=== PATIENT | male | born 1960 | race Caucasian/White ===

== ENCOUNTER 2017-01-08 18:09 | Inpatient (IN) | payer OTHER ==
[~2017-01-08] VITALS: Ht 182.9 cm; Wt 88.5 kg
[~2017-01-08 18:09] MED LIST: LR 1,000 ML IV.SOLN IV ONE; MIDAZOLAM HCL 5 MG/ML VIAL (VERSED) IV ONE; NS IRRIG SOLN 1000 ML IR ONE; PROPOFOL 200MG/ 20ML VIAL (DIPRIVAN) IV ONE; SEVOFLURANE 15 MIN GAS INH ONE; SUCCINYLCHOLINE CHLORIDE 20 MG/ML(QUELICIN) IVP ONE; fentaNYL CITRATE 250 MCG/5 ML AMP IV ONE; simvastatin
[2017-01-08 18:21] VITALS: BP_SYST 159
[2017-01-08 19:37] LABS: BASOPHILS # (AUTO) 0.1 K/uL (0.0-0.2); BASOPHILS % (AUTO) 0.4 % (0.0-2.0); EOSINOPHILS % (AUTO) 0.3 % (0.0-4.0); HEMATOCRIT 44.5 % (36-54); HEMOGLOBIN 14.9 g/dL (14.0-18.0); LYMPHOCYTES # (AUTO) 1.9 K/uL (1.0-5.5); LYMPHOCYTES % (AUTO) 13.3 % (20.5-51.5); MEAN CORPUSCULAR HEMOGLOBIN 30 pg (27-31); MEAN CORPUSCULAR HGB CONC 33 % (32-36); MEAN CORPUSCULAR VOLUME 91 fL (79.0-98.0); MONOCYTES # (AUTO) 0.8 K/uL (0.0-1.0); MONOCYTES % (AUTO) 5.6 % (1.7-9.3); NEUTROPHILS # (AUTO) 11.3 K/uL (1.8-7.7); NEUTROPHILS % (AUTO) 80.4 % (40.0-70.0); PLATELET COUNT (AUTO) 316 K/uL (130-430); RED CELL DISTRIBUTION WIDTH 11.2 % (9.0-15.0); WHITE BLOOD COUNT (AUTO) 14.1 K/uL (4.8-10.8)
[2017-01-08 19:41] LABS: CREATININE 1.19 mg/dL (0.55-1.30)
[2017-01-08] MEDS ORDERED: ACETAMINOPHEN 325 MG TABLET PO PRN (19:45)
[2017-01-08] MEDS ORDERED: ONDANSETRON HCL 4 MG/2 ML VIAL IVP PRN (19:45)
[2017-01-08] MEDS ORDERED: MORPHINE 4 MG/ML INJ. SYRINGE IVP PRN (19:45)
[2017-01-08] MEDS ORDERED: HYDROcodone/ACETAMIN 5-325 MG TAB (NORCO/ VICODIN) PO PRN (19:45)
[2017-01-08 19:46] LABS: ALBUMIN 4.5 g/dL (3.4-4.8); TOTAL BILIRUBIN 0.7 mg/dL (0.0-1.0)
[2017-01-08 20:05] LABS: BILIRUBIN,URINE NEGATIVE (NEGATIVE); CLARITY/URINE CLEAR (CLEAR); COLOR,URINE YELLOW (YELLOW); GLUCOSE,URINE NEGATIVE (NEGATIVE); KETONES,URINE 1+ (NEGATIVE); LEUKOCYTE ESTERASE ,URINE NEGATIVE (NEGATIVE); NITRITE, URINE NEGATIVE (NEGATIVE); PH,URINE 5.5 (5.0-8.0); PROTEIN URINE NEGATIVE (NEGATIVE); UROBILINOGEN,URINE 0.2 (0.2-1.0)
[2017-01-08 20:14] LABS: BLOOD, URINE TRACE (NEGATIVE)
[2017-01-08 20:15] LABS: BACTERIA,URINE FEW /HPF (None Seen); MUCUS,URINE None Seen /LPF (None Seen); RBC,URINE NONE SEEN /HPF (0-3); WBC,URINE 0-3 /HPF (0-3)
[2017-01-08 22:30] VITALS: BP_SYST 126
[2017-01-08] MEDS: D5NS 1,000 ML IV SCH (22:30)
[2017-01-08 22:34] VITALS: BP_SYST 126
[2017-01-08] MEDS ORDERED: SIMV20TA2 PO (22:54)
[2017-01-08] MEDS ORDERED: AMLO5TAB4 PO (22:54)
[2017-01-08] MEDS ORDERED: LOSA50TA3 PO (22:54)
[2017-01-08] MEDS ORDERED: TAMS-11 PO (22:54)
[2017-01-09 00:15] VITALS: BP_SYST 128
[2017-01-09 03:52] VITALS: BP_SYST 121
[2017-01-09] MEDS: D5NS 1,000 ML IV SCH (05:45)
[2017-01-09 06:29] LABS: BASOPHILS % (AUTO) 0.4 % (0.0-2.0); EOSINOPHILS # (AUTO) 0.1 K/uL (0.0-0.4); EOSINOPHILS % (AUTO) 1.6 % (0.0-4.0); HEMATOCRIT 41.5 % (36-54); LYMPHOCYTES # (AUTO) 2.1 K/uL (1.0-5.5); LYMPHOCYTES % (AUTO) 23.3 % (20.5-51.5); MEAN CORPUSCULAR HEMOGLOBIN 31 pg (27-31); MEAN CORPUSCULAR HGB CONC 34 % (32-36); MEAN CORPUSCULAR VOLUME 91 fL (79.0-98.0); MONOCYTES # (AUTO) 0.9 K/uL (0.0-1.0); NEUTROPHILS # (AUTO) 5.9 K/uL (1.8-7.7); NEUTROPHILS % (AUTO) 64.7 % (40.0-70.0); PLATELET COUNT (AUTO) 276 K/uL (130-430); RED BLOOD CELL COUNT(AUTO) 4.55 MIL/uL (4.2-6.2); RED CELL DISTRIBUTION WIDTH 11.4 % (9.0-15.0)
[2017-01-09 06:34] LABS: ALBUMIN 3.7 g/dL (3.4-4.8); CALCIUM 9.6 mg/dL (8.4-11.0); CREATININE 1.05 mg/dL (0.55-1.30); POTASSIUM 4.1 mmol/L (3.5-5.1); TOTAL BILIRUBIN 0.9 mg/dL (0.0-1.0)
[2017-01-09 08:00] VITALS: BP_SYST 136
[2017-01-09 12:28] VITALS: BP_SYST 131
[2017-01-09] MEDS ORDERED: amLODIPine BESYLATE 5 MG TABLET PO SCH (21:00)
[2017-01-09] MEDS ORDERED: SIMVASTATIN 20 MG TABLET PO SCH (21:00)
[2017-01-09] MEDS ORDERED: LOSARTAN POTASSIUM 50 MG TABLET (COZAAR) PO SCH (21:00)
[2017-01-09] MEDS ORDERED: TAMSULOSIN HCL 0.4 MG CAP PO SCH (21:00)
== END 2017-01-09 12:40 | disposition home or self-care (01) | DRG 394 ==
LOC: SED 18:09 → SMU 19:45
PROVIDERS: ADMIT Internal Medicine; ATTEND Internal Medicine
PROC: 0DCP8ZZ Extirpation of Matter from Rectum, Via Natural or Artificial Opening Endoscopic (ICD-10-PCS; principal; 2017-01-08 20:30)
DX: T18.5XXA Foreign body in anus and rectum, initial encounter (principal); K56.600 Partial intestinal obstruction, unspecified as to cause; T18.4XXA Foreign body in colon, initial encounter; D72.829 Elevated white blood cell count, unspecified; X58.XXXA Exposure to other specified factors, initial encounter; E78.5 Hyperlipidemia, unspecified; I10 Essential (primary) hypertension; N40.0 Benign prostatic hyperplasia without lower urinary tract symptoms; Y93.89 Activity, other specified; Y92.89 Other specified places as the place of occurrence of the external cause; Y99.8 Other external cause status; Z90.49 Acquired absence of other specified parts of digestive tract
CPT/HCPCS: 36415; 71010; 74020-TC; 80053; 81000-TC; 83880; 84484; 85025; 85610-TC; 87081; 88302; 93005; 99285; J0330; J2250; J2704; J3010; J7120

== ENCOUNTER 2022-09-20 13:25 | Inpatient (IN) | payer OTHER ==
[~2022-09-20] VITALS: Ht 182.9 cm; Wt 92.5 kg
[~2022-09-20 13:25] MED LIST changes: +AMLO5TAB4 PO; +LOSA50TA3 PO; -LR 1,000 ML IV.SOLN IV ONE; -MIDAZOLAM HCL 5 MG/ML VIAL (VERSED) IV ONE; -NS IRRIG SOLN 1000 ML IR ONE; -PROPOFOL 200MG/ 20ML VIAL (DIPRIVAN) IV ONE; -SEVOFLURANE 15 MIN GAS INH ONE; +SIMV-343 PO; -SUCCINYLCHOLINE CHLORIDE 20 MG/ML(QUELICIN) IVP ONE; +TAMS-11 PO; -fentaNYL CITRATE 250 MCG/5 ML AMP IV ONE
[2022-09-20 13:44] VITALS: BP_SYST 122; PULSE 122; RESP 22; TEMP 98.3; O2SAT 97
[2022-09-20] MEDS ORDERED: KETOROLAC TROMETHAMINE 30 MG VIAL IVP ONE (15:15)
[2022-09-20] MEDS ORDERED: NACL 0.9% 1,000 ML IV ONE ×2 (15:15→17:30)
[2022-09-20] MEDS ORDERED: ONDANSETRON HCL 4 MG/2 ML VIAL IVP ONE (15:15)
[2022-09-20 15:34] LABS: BILIRUBIN,URINE NEGATIVE (NEGATIVE); BLOOD, URINE 2+ (NEGATIVE); CLARITY/URINE CLEAR (CLEAR); COLOR,URINE YELLOW (YELLOW); GLUCOSE,URINE NEGATIVE (NEGATIVE); KETONES,URINE NEGATIVE (NEGATIVE); LEUKOCYTE ESTERASE ,URINE NEGATIVE (NEGATIVE); NITRITE, URINE NEGATIVE (NEGATIVE); PH,URINE 5.5 (5.0-8.0); PROTEIN URINE 1+ (NEGATIVE)
[2022-09-20 15:36] LABS: BACTERIA,URINE FEW /HPF (None Seen); RBC,URINE NONE SEEN /HPF (0-3); WBC,URINE 0-3 /HPF (0-3)
[2022-09-20 15:37] LABS: MUCUS,URINE None Seen /LPF (None Seen)
[2022-09-20 15:46] LABS: ANION GAP 9 (5-15); CHLORIDE 93 mmol/L (98-107); CREATININE 1.41 mg/dL (0.55-1.30); GFR AFRICAN AMERICAN 65 mL/min (>90); GLUCOSE 148 mg/dL (70-99); UREA NITROGEN, BLOOD 18 mg/dL (8-21)
[2022-09-20 15:47] LABS: MEAN CORPUSCULAR VOLUME 90 fL (79.0-98.0)
[2022-09-20 15:48] LABS: INR 1.3 (0.80-1.20); PROTHROMBIN TIME 13.2 SECS (9.5-12.5)
[2022-09-20 15:53] LABS: ALANINE AMINOTRANSFERASE 41 U/L (12-78); ASPARTATE AMINOTRANSFERASE 28 U/L (10-37); TOTAL BILIRUBIN 0.9 mg/dL (0.0-1.0)
[2022-09-20 15:58] LABS: RED BLOOD CELL COUNT(AUTO) 4.41 MIL/uL (4.2-6.2); WHITE BLOOD COUNT (AUTO) 29.6 K/uL (4.8-10.8)
[2022-09-20 15:59] LABS: HEMATOCRIT 39.6 % (36-54); HEMOGLOBIN 13.4 g/dL (14.0-18.0); MEAN CORPUSCULAR HEMOGLOBIN 30 pg (27-31); MEAN CORPUSCULAR HGB CONC 34 % (32-36); PLATELET COUNT (AUTO) 245 K/uL (130-430); RED CELL DISTRIBUTION WIDTH 13.4 % (9.0-15.0)
[2022-09-20] MEDS ORDERED: cefTRIAXone 2 GM VIAL ONE (16:11)
[2022-09-20] MEDS ORDERED: ACETAMINOPHEN 325 MG TABLET PO ONE (16:30)
[2022-09-20 16:38] LABS: BAND % (MANUAL) 19 % (0-6); BASOPHILS % (MANUAL) 0 % (0-2); EOSINOPHILS % (MANUAL) 0 % (0-7); LYMPHOCYTES % (MANUAL) 3 % (20-46); MONOCYTES % (MANUAL) 6 % (0-11)
[2022-09-20] MEDS: D5NS 1,000 ML IV SCH ×2 (16:59→18:58)
[2022-09-20] MEDS ORDERED: METF-379 PO (17:02)
[2022-09-20] MEDS ORDERED: LIP10 PO (17:04)
[2022-09-20] MEDS ORDERED: SULF1TAB48 PO (17:05)
[2022-09-20 18:25] VITALS: BP_SYST 135; PULSE 98; RESP 16; TEMP 99.3; O2SAT 95
[2022-09-20 18:26] VITALS: O2SAT 95
[2022-09-20 18:27] VITALS: BP_SYST 135; PULSE 98; RESP 16; TEMP 99.3
[2022-09-20] MEDS ORDERED: ONDANSETRON HCL 4 MG/2 ML VIAL IVP PRN (22:15)
[2022-09-21] VITALS: BP_SYST 142; PULSE 87; RESP 17; TEMP 98.7; O2SAT 96
[2022-09-21] MEDS ORDERED: HYDROcodone/ACETAMIN 10-325 MG TAB PO PRN
[2022-09-21] MEDS ORDERED: NALOXONE HCL 0.4 MG/ML AMP (NARCAN) IVP PRN ×2
[2022-09-21] MEDS ORDERED: INSULIN REGULAR, HUMAN 100 UNITS/ML, 3 ML VIAL (humuLIN R) SUBCUT PRN
[2022-09-21] MEDS ORDERED: HYDROcodone/ACETAMIN 5-325 MG TAB (NORCO/ VICODIN) PO PRN
[2022-09-21] MEDS ORDERED: ACETAMINOPHEN 325 MG TABLET PO PRN
[2022-09-21] MEDS: ONDANSETRON HCL 4 MG/2 ML VIAL IVP PRN ×3 (02:21→16:21)
[2022-09-21 04:47] LABS: BASOPHILS % (AUTO) 0.1 % (0.0-2.0); HEMATOCRIT 40.1 % (36-54); HEMOGLOBIN 13.3 g/dL (14.0-18.0); LYMPHOCYTES # (AUTO) 1.7 K/uL (1.0-5.5); LYMPHOCYTES % (AUTO) 6.7 % (20.5-51.5); MEAN CORPUSCULAR HEMOGLOBIN 30 pg (27-31); MEAN CORPUSCULAR HGB CONC 33 % (32-36); MEAN CORPUSCULAR VOLUME 92 fL (79.0-98.0); MONOCYTES % (AUTO) 7.9 % (1.7-9.3); NEUTROPHILS # (AUTO) 21.9 K/uL (1.8-7.7); NEUTROPHILS % (AUTO) 85.3 % (40.0-70.0); PLATELET COUNT (AUTO) 237 K/uL (130-430); RED BLOOD CELL COUNT(AUTO) 4.39 MIL/uL (4.2-6.2); RED CELL DISTRIBUTION WIDTH 13.5 % (9.0-15.0); WHITE BLOOD COUNT (AUTO) 25.7 K/uL (4.8-10.8)
[2022-09-21] MEDS: NACL 0.9% 1,000 ML IV SCH ×3 (04:47→16:53)
[2022-09-21 05:21] LABS: ALBUMIN 2.8 g/dL (3.4-4.8); CALCIUM 8.7 mg/dL (8.4-11.0); CREATININE 1.24 mg/dL (0.55-1.30); PHOSPHORUS 1.7 mg/dL (2.7-4.5); TOTAL BILIRUBIN 0.6 mg/dL (0.0-1.0)
[2022-09-21 07:51] VITALS: BP_SYST 132; PULSE 84; RESP 18; TEMP 97.8; O2SAT 97
[2022-09-21] MEDS: cefTRIAXone 1 GM IVPB PREMIX 50 ML IV SCH (09:09)
[2022-09-21] MEDS: SULFAMETHOXAZOLE/TRIMETHOPR DS 1 TABLET PO SCH ×2 (09:13→22:13)
[2022-09-21] MEDS: ATORVASTATIN 10 MG TABLET PO SCH (09:13)
[2022-09-21] MEDS: metFORMIN HCL 500 MG TABLET PO SCH (09:13)
[2022-09-21] MEDS: METOCLOPRAMIDE HCL 10 MG/2 ML VIAL IVP PRN ×3 (11:01→23:08)
[2022-09-21 12:00] VITALS: BP_SYST 129; PULSE 64; RESP 20; TEMP 99.7; O2SAT 95
[2022-09-21] MEDS ORDERED: POTASSIUM CHLORIDE 40 MEQ in NS 250 ML IV ONE (12:00)
[2022-09-21] MEDS ORDERED: DUTASTERIDE 0.5 MG CAPSULE (AVODART) PO ONE (14:00)
[2022-09-21 16:14] VITALS: BP_SYST 132; PULSE 65; RESP 20; TEMP 98.9; O2SAT 96
[2022-09-21 19:00] VITALS: BP_SYST 142; PULSE 95; RESP 16; TEMP 99.5; O2SAT 96; O2SAT 98
[2022-09-21 20:00] VITALS: BP_SYST 142; PULSE 95; RESP 16; TEMP 99.5; O2SAT 96
[2022-09-21] MEDS: TAMSULOSIN HCL 0.4 MG CAP PO SCH (22:14)
[2022-09-21] MEDS: LOSARTAN POTASSIUM 50 MG TABLET (COZAAR) PO SCH (22:14)
[2022-09-21] MEDS: amLODIPine BESYLATE 5 MG TABLET PO SCH (22:15)
[2022-09-21] MEDS ORDERED: BENZOCAINE/MENTHOL 1 EACH LOZENGE MM PRN (22:15)
[2022-09-21] MEDS: LORazepam 2 MG/ML VIAL IVP PRN (23:07)
[2022-09-22 00:26] VITALS: BP_SYST 130; PULSE 69; RESP 18; TEMP 98.6; O2SAT 98
[2022-09-22] MEDS: ONDANSETRON HCL 4 MG/2 ML VIAL IVP PRN ×3 (03:05→21:16)
[2022-09-22] MEDS: LORazepam 2 MG/ML VIAL IVP PRN ×2 (03:06→20:59)
[2022-09-22] MEDS: NACL 0.9% 1,000 ML IV SCH ×2 (04:41→15:06)
[2022-09-22 05:19] LABS: BASOPHILS % (AUTO) 0.2 % (0.0-2.0); EOSINOPHILS % (AUTO) 0.3 % (0.0-4.0); HEMATOCRIT 36.3 % (36-54); HEMOGLOBIN 12.4 g/dL (14.0-18.0); LYMPHOCYTES # (AUTO) 1.3 K/uL (1.0-5.5); LYMPHOCYTES % (AUTO) 6.7 % (20.5-51.5); MEAN CORPUSCULAR HEMOGLOBIN 31 pg (27-31); MEAN CORPUSCULAR HGB CONC 34 % (32-36); MEAN CORPUSCULAR VOLUME 90 fL (79.0-98.0); MONOCYTES # (AUTO) 1.4 K/uL (0.0-1.0); MONOCYTES % (AUTO) 7.4 % (1.7-9.3); NEUTROPHILS # (AUTO) 15.9 K/uL (1.8-7.7); NEUTROPHILS % (AUTO) 85.4 % (40.0-70.0); PLATELET COUNT (AUTO) 269 K/uL (130-430); RED BLOOD CELL COUNT(AUTO) 4.03 MIL/uL (4.2-6.2); RED CELL DISTRIBUTION WIDTH 13.1 % (9.0-15.0); WHITE BLOOD COUNT (AUTO) 18.7 K/uL (4.8-10.8)
[2022-09-22 05:25] LABS: CALCIUM 8.3 mg/dL (8.4-11.0); CREATININE 0.94 mg/dL (0.55-1.30)
[2022-09-22 07:32] VITALS: BP_SYST 147; PULSE 95; RESP 18; TEMP 99.3; O2SAT 95
[2022-09-22] MEDS: METOCLOPRAMIDE HCL 10 MG/2 ML VIAL IVP PRN ×2 (07:52→17:22)
[2022-09-22] MEDS: ATORVASTATIN 10 MG TABLET PO SCH (08:38)
[2022-09-22] MEDS: metFORMIN HCL 500 MG TABLET PO SCH (08:38)
[2022-09-22] MEDS: cefTRIAXone 1 GM IVPB PREMIX 50 ML IV SCH (08:38)
[2022-09-22] MEDS: SULFAMETHOXAZOLE/TRIMETHOPR DS 1 TABLET PO SCH ×2 (08:38→21:00)
[2022-09-22 10:00] VITALS: O2SAT 95
[2022-09-22 10:40] LABS: BILIRUBIN,URINE NEGATIVE (NEGATIVE); BLOOD, URINE 1+ (NEGATIVE); CLARITY/URINE CLEAR (CLEAR); COLOR,URINE YELLOW (YELLOW); GLUCOSE,URINE NEGATIVE (NEGATIVE); KETONES,URINE NEGATIVE (NEGATIVE); LEUKOCYTE ESTERASE ,URINE NEGATIVE (NEGATIVE); NITRITE, URINE NEGATIVE (NEGATIVE); PROTEIN URINE NEGATIVE (NEGATIVE)
[2022-09-22 11:03] LABS: BACTERIA,URINE None Seen /HPF (None Seen)
[2022-09-22 13:23] VITALS: BP_SYST 135; PULSE 88; RESP 17; TEMP 98.9; O2SAT 98
[2022-09-22 16:00] VITALS: BP_SYST 139; PULSE 90; RESP 18; TEMP 99; O2SAT 96
[2022-09-22 20:00] VITALS: BP_SYST 151; PULSE 92; RESP 18; TEMP 98.6; O2SAT 96
[2022-09-22] MEDS: LOSARTAN POTASSIUM 50 MG TABLET (COZAAR) PO SCH (21:00)
[2022-09-22] MEDS: amLODIPine BESYLATE 5 MG TABLET PO SCH (21:01)
[2022-09-22] MEDS: TAMSULOSIN HCL 0.4 MG CAP PO SCH (21:01)
[2022-09-23 01:49] VITALS: BP_SYST 133; PULSE 89; RESP 18; TEMP 98.9; O2SAT 93
[2022-09-23] MEDS: NACL 0.9% 1,000 ML IV SCH ×3 (02:19→21:32)
[2022-09-23 04:00] VITALS: BP_SYST 138; PULSE 91; RESP 18; TEMP 98.8; O2SAT 95
[2022-09-23 08:00] VITALS: BP_SYST 146; PULSE 91; RESP 28; TEMP 98.2; O2SAT 96
[2022-09-23] MEDS: SULFAMETHOXAZOLE/TRIMETHOPR DS 1 TABLET PO SCH ×2 (08:25→21:22)
[2022-09-23] MEDS: metFORMIN HCL 500 MG TABLET PO SCH (08:25)
[2022-09-23] MEDS: ATORVASTATIN 10 MG TABLET PO SCH (08:25)
[2022-09-23] MEDS: cefTRIAXone 1 GM IVPB PREMIX 50 ML IV SCH (08:26)
[2022-09-23] MEDS: ONDANSETRON HCL 4 MG/2 ML VIAL IVP PRN ×3 (08:33→23:30)
[2022-09-23 09:46] LABS: BASOPHILS # (AUTO) 0.1 K/uL (0.0-0.2); BASOPHILS % (AUTO) 0.5 % (0.0-2.0); EOSINOPHILS # (AUTO) 0.2 K/uL (0.0-0.4); EOSINOPHILS % (AUTO) 1.3 % (0.0-4.0); HEMATOCRIT 38.2 % (36-54); HEMOGLOBIN 12.9 g/dL (14.0-18.0); LYMPHOCYTES # (AUTO) 1.5 K/uL (1.0-5.5); LYMPHOCYTES % (AUTO) 11.3 % (20.5-51.5); MEAN CORPUSCULAR HEMOGLOBIN 31 pg (27-31); MEAN CORPUSCULAR HGB CONC 34 % (32-36); MEAN CORPUSCULAR VOLUME 91 fL (79.0-98.0); MONOCYTES # (AUTO) 1.4 K/uL (0.0-1.0); MONOCYTES % (AUTO) 10.3 % (1.7-9.3); NEUTROPHILS # (AUTO) 10.1 K/uL (1.8-7.7); NEUTROPHILS % (AUTO) 76.6 % (40.0-70.0); PLATELET COUNT (AUTO) 298 K/uL (130-430); RED BLOOD CELL COUNT(AUTO) 4.22 MIL/uL (4.2-6.2); WHITE BLOOD COUNT (AUTO) 13.2 K/uL (4.8-10.8)
[2022-09-23 09:49] LABS: CALCIUM 8.9 mg/dL (8.4-11.0); CREATININE 0.98 mg/dL (0.55-1.30)
[2022-09-23 12:58] VITALS: BP_SYST 142; PULSE 90; RESP 22; TEMP 98.5; O2SAT 98
[2022-09-23 16:00] VITALS: BP_SYST 145; PULSE 88; RESP 22; TEMP 98.3; O2SAT 97
[2022-09-23 20:00] VITALS: BP_SYST 148; PULSE 96; RESP 18; TEMP 98.5; O2SAT 97
[2022-09-23] MEDS: TAMSULOSIN HCL 0.4 MG CAP PO SCH (21:22)
[2022-09-23] MEDS: amLODIPine BESYLATE 5 MG TABLET PO SCH (21:23)
[2022-09-23] MEDS: LOSARTAN POTASSIUM 50 MG TABLET (COZAAR) PO SCH (21:23)
[2022-09-23] MEDS ORDERED: traZODone HCL 50 MG TABLET (DESYREL) PO PRN (23:30)
[2022-09-24 00:29] VITALS: BP_SYST 149; PULSE 85; RESP 18; TEMP 98.1; O2SAT 97
[2022-09-24 06:29] LABS: BASOPHILS # (AUTO) 0.1 K/uL (0.0-0.2); BASOPHILS % (AUTO) 0.5 % (0.0-2.0); EOSINOPHILS # (AUTO) 0.2 K/uL (0.0-0.4); EOSINOPHILS % (AUTO) 1.6 % (0.0-4.0); HEMATOCRIT 36.8 % (36-54); HEMOGLOBIN 12.4 g/dL (14.0-18.0); LYMPHOCYTES # (AUTO) 1.9 K/uL (1.0-5.5); LYMPHOCYTES % (AUTO) 13.1 % (20.5-51.5); MEAN CORPUSCULAR HEMOGLOBIN 30 pg (27-31); MEAN CORPUSCULAR HGB CONC 34 % (32-36); MEAN CORPUSCULAR VOLUME 90 fL (79.0-98.0); MONOCYTES # (AUTO) 1.4 K/uL (0.0-1.0); MONOCYTES % (AUTO) 9.7 % (1.7-9.3); NEUTROPHILS # (AUTO) 10.7 K/uL (1.8-7.7); NEUTROPHILS % (AUTO) 75.1 % (40.0-70.0); PLATELET COUNT (AUTO) 304 K/uL (130-430); WHITE BLOOD COUNT (AUTO) 14.3 K/uL (4.8-10.8)
[2022-09-24 06:48] LABS: CALCIUM 8.5 mg/dL (8.4-11.0); CREATININE 0.92 mg/dL (0.55-1.30)
[2022-09-24] MEDS: NACL 0.9% 1,000 ML IV SCH ×2 (07:44→17:52)
[2022-09-24 08:00] VITALS: BP_SYST 130; PULSE 91; RESP 20; TEMP 98.2; O2SAT 92
[2022-09-24] MEDS: ATORVASTATIN 10 MG TABLET PO SCH (08:09)
[2022-09-24] MEDS: SULFAMETHOXAZOLE/TRIMETHOPR DS 1 TABLET PO SCH (08:09)
[2022-09-24] MEDS: metFORMIN HCL 500 MG TABLET PO SCH (08:09)
[2022-09-24] MEDS: cefTRIAXone 1 GM IVPB PREMIX 50 ML IV SCH (08:09)
[2022-09-24 12:00] VITALS: BP_SYST 149; PULSE 92; RESP 20; TEMP 98.3; O2SAT 95
[2022-09-24] MEDS ORDERED: FUROSEMIDE 20 MG/2 ML VIAL IVP ONE (19:00)
[2022-09-24] MEDS ORDERED: LEVO-62 PO (19:23)
[2022-09-24 20:19] VITALS: BP_SYST 149; PULSE 92; RESP 18; TEMP 98.3; O2SAT 95
== END 2022-09-24 20:35 | disposition home or self-care (01) | DRG 872 ==
LOC: SED 13:25 → STU 16:55 → SMU 09-22 19:24
PROVIDERS: ADMIT Specialist; ATTEND Specialist
DX: A41.9 Sepsis, unspecified organism (principal); E87.1 Hypo-osmolality and hyponatremia; N12 Tubulo-interstitial nephritis, not specified as acute or chronic; N39.0 Urinary tract infection, site not specified; I10 Essential (primary) hypertension; E03.9 Hypothyroidism, unspecified; E11.65 Type 2 diabetes mellitus with hyperglycemia; N40.0 Benign prostatic hyperplasia without lower urinary tract symptoms; K40.20 Bilateral inguinal hernia, without obstruction or gangrene, not specified as recurrent; E87.6 Hypokalemia
CPT/HCPCS: 36415; 71045; 76376; 80048; 80053; 81000; 83037; 83605; 83735; 83880; 84100; 84484; 85007; 85025; 85027; 85610-TC; 85730-TC; 87040; 87086; 93005; 96365; 96375; 99285; G0378; J0696; J1885; J1940; J2060; J2405; J2765; J3480; J7030; J7042; J7050